=== PATIENT | female | born 1955 | race Caucasian/White ===

== ENCOUNTER → 2016-09-19 | Outpatient (CLI) | payer OTHER ==
[~2016-09-19] MED LIST: ADULT LOW DOSE81 M1 PO; ARTHRITIS PAIN650 M1 PO; ASPIR 8181 M1 PO; ATORVASTATIN CA10 MG PO; CARAFATE1 GM PO; CLEOCIN300 MG PO; ECOTRIN325 MG PO; EXTRA STRENGTH500 M1 PO; Ecotrin PO; FLEXERIL5 MG PO; FUROSEMIDE40 MG PO; GABAPENTIN300 MG PO; K-DUR20 MEQ PO; KENALOG,ARISTOC15 GM TP; LEXAPRO10 MG PO; MACROBID100 MG PO; METOPROLOL SUCC25 MG PO; METOPROLOL TART25 MG PO; NEXIUM40 MG PO; OMEPRAZOLE40 M1 PO; PLAQUENIL PO; PLAQUENIL200 MG PO; PREDNISONE10 MG PO; RANITIDINE HCL150 MG PO; RYBIX ODT50 MG PO; STOOL SOFTENER100 MG PO; TORADOL10 MG PO; TRAMADOL HCL50 MG PO; TYLENOL ARTHRI650 M2 PO; ZANTAC150 MG PO
== END | disposition home or self-care (01) ==
DX: M16.12 Unilateral primary osteoarthritis, left hip (principal); R26.2 Difficulty in walking, not elsewhere classified; M62.81 Muscle weakness (generalized); M25.652 Stiffness of left hip, not elsewhere classified
CPT/HCPCS: 97110 GP; 97150 GO; 97161 GP; 97165 GO; G8978 GP; G8979 GP; G8980 GP; G8987 GO; G8988 GO; G8989 GO

== ENCOUNTER 2016-10-30 09:04 | Inpatient (IN) | payer OTHER ==
[~2016-10-30] VITALS: Ht 154.9 cm; Wt 58.5 kg
[~2016-10-30 09:04] MED LIST changes: +CARISOPRODOL350 MG PO; +IRON325 M1 PO; +LIPITOR40 MG PO; +LOTEMAX5 GM BOTH EYES; +MAXITROL EYE O3.5 GM BOTH EYES; +METOPROLOL TART50 MG PO; +NITROSTAT0.4 MG SL; +RESTASIS MULTI5.5 ML BOTH EYES; +SERTRALINE HCL25 MG PO; +TEMOVATE 0.05%15 G1 TP
[2016-10-30 09:38] VITALS: BP 137/63
[2016-10-30 14:33] LABS: HEMATOCRIT 33.9 % (36.0-46.0); MCH 27.5 PG (29.0-34.0); MCHC 31.3 G/DL (30.0-36.0); MCV 88.1 FL (83-99); MEAN PLAT.VOLUME 9.9 uM^3 (9.5-12.4); PLATELET COUNT 152 K/uL (156-360); RBC DIS.WIDTH-CV 12.9 % (11.8-14.6); RBC DIS.WIDTH-SD 41.6 % (39-53); RED BLOOD COUNT 3.85 M/uL (3.80-5.20)
[2016-10-30 14:36] LABS: WHITE BLOOD COUNT 4.7 K/uL (4.1-10.2)
[2016-10-30 15:01] VITALS: BP 142/63
[2016-10-30 20:01] VITALS: BP 134/64
[2016-10-30 23:51] VITALS: BP 138/65
[2016-10-31 04:08] VITALS: BP 134/63
[2016-10-31 05:57] LABS: HEMATOCRIT 30.8 % (36.0-46.0); MCV 85.3 FL (83-99)
[2016-10-31 06:52] LABS: ANION GAP 8 MEQ/L (2-14); CHLORIDE 105 MEQ/L (99-109); GFR ESTIMATE (CALCULATED) > 59 mL/min/; GLUCOSE 118 mg/dL (70-99); SAMPLE HEMOLYSIS CHECK 0; SAMPLE ICTERIC CHECK 0; SAMPLE LIPEMIA CHECK 0; SODIUM 136 MEQ/L (136-147); UREA NITROGEN (BUN) 10 mg/dL (9-23)
[2016-10-31 08:00] VITALS: BP 116/58
[2016-10-31 11:36] VITALS: BP 142/61
[2016-10-31 13:42] VITALS: BP 114/60
[2016-10-31 15:35] VITALS: BP 126/62
[2016-10-31 19:58] VITALS: BP 117/54
[2016-11-01 00:04] VITALS: BP 132/59
[2016-11-01 04:00] VITALS: BP 112/54
[2016-11-01] MEDS ORDERED: LOVENOX40 MG/0.4 SC (08:26)
[2016-11-01] MEDS ORDERED: MORPHINE SULFAT15 MG PO (08:26)
[2016-11-01 11:33] VITALS: BP 104/50
[2016-11-01 15:09] VITALS: BP 112/53
[2016-11-01 20:07] VITALS: BP 116/58
[2016-11-01 23:47] VITALS: BP 124/58
[2016-11-02 03:51] VITALS: BP 105/53
[2016-11-02] MEDS ORDERED: ADULT FOLDING1 EACH MC (08:22)
[2016-11-02 08:26] VITALS: BP 105/55
[2016-11-02 10:30] VITALS: BP 105/53
== END 2016-11-02 10:50 | disposition home health service (06) | DRG 470 ==
LOC: 2SOUTH 09:04 → 3WEST 14:38 → 2SOUTH 01-30 09:34 → SDC 01-30 12:49 → EDSTATUS 01-30 12:49 → 2SOUTH 01-30 12:51
PROVIDERS: Orthopaedic Surgery
PROC: 0SRB02A Replacement of Left Hip Joint with Metal on Polyethylene Synthetic Substitute, Uncemented, Open Approach (ICD-10-PCS; principal; 2016-10-30)
DX: M87.052 Idiopathic aseptic necrosis of left femur (principal); M16.12 Unilateral primary osteoarthritis, left hip; F33.9 Major depressive disorder, recurrent, unspecified; M89.752 Major osseous defect, left pelvic region and thigh; F41.0 Panic disorder [episodic paroxysmal anxiety]; E78.2 Mixed hyperlipidemia; K59.00 Constipation, unspecified; I10 Essential (primary) hypertension; K21.9 Gastro-esophageal reflux disease without esophagitis; L40.9 Psoriasis, unspecified; J30.2 Other seasonal allergic rhinitis; M32.9 Systemic lupus erythematosus, unspecified; I25.10 Atherosclerotic heart disease of native coronary artery without angina pectoris; Z95.5 Presence of coronary angioplasty implant and graft; Z88.5 Allergy status to narcotic agent; Z88.1 Allergy status to other antibiotic agents; Z88.2 Allergy status to sulfonamides; Z88.0 Allergy status to penicillin; Z79.82 Long term (current) use of aspirin; Z82.49 Family history of ischemic heart disease and other diseases of the circulatory system; Z83.3 Family history of diabetes mellitus
CPT/HCPCS: 73501; 80048; 85014; 85018; 85027; 97530 GO; 97530 GP; J0690; J1650; J2250; J2405; J7040; J7050

== ENCOUNTER → 2017-06-25 | Outpatient (CLI) | payer OTHER ==
[~2017-06-25] VITALS: Ht 154.9 cm; Wt 58.1 kg
[~2017-06-25] MED LIST changes: +ADULT FOLDING1 EACH MC; +LO-DOSE ASPIRIN81 M2 PO; +LOVENOX40 MG/0.4 SC; +MORPHINE SULFAT15 MG PO
== END | disposition home or self-care (01) ==
LOC: AMB 09:30
PROC: 0DJD8ZZ Inspection of Lower Intestinal Tract, Via Natural or Artificial Opening Endoscopic (ICD-10-PCS; principal; 2017-06-25)
DX: Z12.11 Encounter for screening for malignant neoplasm of colon (principal); K64.8 Other hemorrhoids; I25.10 Atherosclerotic heart disease of native coronary artery without angina pectoris; Z95.1 Presence of aortocoronary bypass graft; L93.0 Discoid lupus erythematosus; M06.9 Rheumatoid arthritis, unspecified; Z96.643 Presence of artificial hip joint, bilateral; Z80.0 Family history of malignant neoplasm of digestive organs; Z82.49 Family history of ischemic heart disease and other diseases of the circulatory system; Z79.82 Long term (current) use of aspirin; Z88.8 Allergy status to other drugs, medicaments and biological substances

== ENCOUNTER → 2017-11-05 | Outpatient (CLI) | payer OTHER ==
[~2017-11-05] VITALS: Ht 154.9 cm; Wt 60.4 kg
== END | disposition home or self-care (01) ==
LOC: AMB 08:59
PROC: 0DB68ZX Excision of Stomach, Via Natural or Artificial Opening Endoscopic, Diagnostic (ICD-10-PCS; principal; 2017-11-05)
DX: K25.9 Gastric ulcer, unspecified as acute or chronic, without hemorrhage or perforation (principal); R10.13 Epigastric pain; M32.9 Systemic lupus erythematosus, unspecified; M06.9 Rheumatoid arthritis, unspecified; Z80.0 Family history of malignant neoplasm of digestive organs; Z82.49 Family history of ischemic heart disease and other diseases of the circulatory system
CPT/HCPCS: 88305; 88342 TC; 93005; J2250